=== PATIENT | male | born 1985 | race Caucasian/White ===

== ENCOUNTER 2024-08-05 12:41 | Emergency (ER) | payer MEDICAID, SELFPAY ==
[2024-08-05 13:06] VITALS: BP 148/96; PULSE 78; RESP 18; TEMP 36.8; O2SAT 99; BMI 43.0
--- NOTE | 2024-08-05 13:24 | PD.EDEPIST ---
ED Epistaxis RME/HPI General Chief complaint: Epistaxis/Nasal Foreign Body Stated complaint: EPISTAXIS X 1 WK Time Seen by Provider: 08/05/24 13:25 Source: patient Arrival date/time: 08/05/24 12:41 39-year-old male with no known medical history presents to the emergency room with a chief complaint of left-sided epistaxis x 1 week. Mode of arrival: ambulatory Limitations: no limitations Related Data Home Medications ?Medication ?Instructions ?Recorded ?Confirmed hydrochlorothiazide 12.5 mg capsule 12.5 mg PO QDAY 03/31/18 12/31/18 lisinopril 40 mg tablet 40 mg PO QDAY 03/31/18 12/31/18 fexofenadine 180 mg tablet 180 mg PO QDAY 12/31/18 12/31/18 (Lisa Allergy) metoprolol succinate 25 mg 50 mg PO DAILY 12/31/18 12/31/18 tablet,extended release 24 hr (Toprol XL) ranitidine HCl 150 mg tablet (Acid 150 mg PO QDAY 12/31/18 12/31/18 Funeral Car Driver (ranitidine)) Previous Rx's ?Medication ?Instructions ?Recorded ibuprofen 800 mg tablet 800 mg PO TID PRN pain #30 tabs 12/11/22 hydrocodone 10 mg-acetaminophen 1 tab PO BID PRN pain #5 tabs 12/23/22 325 mg tablet Allergies Allergy/AdvReac Type Severity Reaction Status Date / Time morphine Allergy Mild ITCHINESS Verified 08/05/24 12:44 Review of Systems Review of Systems Systems Reviewed: All systems reviewed, normal except as documented Constitutional Constitutional: Reports system reviewed and no additional complaints, except as documented, Denies fatigue, Denies fever(s), Denies headache(s) and Denies weakness Eyes Eyes: Reports system reviewed and no additional complaints, except as documented, Denies blurry vision and Denies change in vision ENT Ears, Nose, Mouth, and Throat: Reports system reviewed and no additional complaints, except as documented, Denies otalgia, Reports epistaxis, Denies headache(s), Denies nasal congestion, Denies throat swelling and Denies vertigo Cardiovascular Cardiovascular: Reports system reviewed and no additional complaints, except as documented, Denies chest pain, Denies dyspnea and Denies dyspnea on exertion Respiratory Respiratory: Reports system reviewed and no additional complaints, except as documented, Denies chest congestion, Denies cough, Denies dyspnea, Denies dyspnea on exertion and Denies wheezing Gastrointestinal Gastrointestinal: Reports system reviewed and no additional complaints, except as documented, Denies abdominal pain, Denies cramping, Denies nausea and Denies vomiting Genitourinary Genitourinary: Reports system reviewed and no additional complaints, except as documented, Denies dysuria and Denies hematuria Musculoskeletal Musculoskeletal: Reports system reviewed and no additional complaints, except as documented and Denies back pain Integumentary/Breasts Skin/Breast: Reports system reviewed and no additional complaints, except as documented and Denies wounds Neurologic Neurologic: Reports system reviewed and no additional complaints, except as documented, Denies confusion, Denies headache(s), Denies lack of coordination, Denies vertigo and Denies weakness Psychiatric Psychiatric: Reports system reviewed and no additional complaints, except as documented, Denies anxiety, Denies confusion, Denies depression, Denies paranoia, Denies suicidal ideation and Denies tactile hallucinations Endocrine Endocrine: Reports system reviewed and no additional complaints, except as documented and Denies fatigue Hematologic/Lymphatic Hematologic/Lymphatic: Reports system reviewed and no additional complaints, except as documented and Denies lymphadenopathy Allergic/Immunologic Allergic/Immunologic: Reports system reviewed and no additional complaints, except as documented, Denies throat swelling, Denies urticaria and Denies wheezing Past Medical History Past Medical History NEUROLOGIC: Positive Neurological Disorders and Migraine; Negative Seizures CARDIAC: Positive Cardiac Disorders, Hypercholesterolemia and Hypertension; Negative Congestive Heart Failure RESPIRATORY: Positive Asthma and Sleep Apnea; Negative Chronic Obstructive Pulmonary Disease (COPD) GASTROINTESTINAL: Negative Gastrointestinal Disorders GENITOURINARY: Negative Genitourinary Disorders or Renal Disease MUSCULOSKELETAL: Positive Musculoskeletal Disorders and Arthritis ENDOCRINE: Negative Endocrine Disorders, Diabetes Mellitus Type 1 or Diabetes Mellitus Type 2 HEMATOLOGIC: Negative Blood Disorders PSYCHO/SOCIAL: Positive Anxiety; Negative Depression OTHER HISTORY: Positive Chicken Pox; Negative Shingles, Anesthesia Reactions, Measles, Mumps or Cancer Social History SMOKING STATUS: Never smoker ED Exam General Limitations: Present no limitations General appearance: Present alert and in no apparent distress Head Head exam: Present atraumatic Eye Eye exam: Present normal appearance, PERRL and EOMI ENT ENT exam: Present normal exam, normal oropharynx and mucous membranes moist Expanded ENT Exam Nose exam: Absent sinus tenderness, nasal deviation, crepitus or septal hematoma Nasal speculum exam: Left: epistaxis and Right: normal Neck Neck exam: Present normal inspection, full ROM and trachea midline Chest Chest inspection: Present normal inspection and symmetric chest wall rise Respiratory Respiratory exam: Present normal lung sounds bilaterally Cardiovascular Cardiovascular exam: Present regular rate, normal rhythm and normal heart sounds Abdominal Exam Abdominal exam: Present soft and normal bowel sounds Extremities Exam Extremities exam: Present normal inspection and full ROM Back Exam Back exam: Present normal inspection and full ROM Neurological Exam Neurological exam: Present alert, oriented X3 and CN II-XII intact Psychiatric Psychiatric exam: Present normal affect and normal mood Skin Skin exam: Present warm, dry, intact and normal color Course Quality Measures none Vital Signs Vital signs: Vital Signs Temperature 98.3 F 08/05/24 13:06 Pulse Rate 78 08/05/24 13:06 Respiratory Rate 18 08/05/24 13:06 Blood Pressure 148/96 H 08/05/24 13:06 Pulse Oximetry (%) 99 08/05/24 13:06 Oxygen Delivery Method Room Air 08/05/24 13:06 O2 saturation 99% within normal limits Epistaxis MDM Narrative MDM Narrative:: 39-year-old male with no known medical history presents to the emergency room with a chief complaint of left-sided epistaxis x 1 week. Patient is hemodynamically stable and in no apparent distress Physical examination shows a small sore inside of the nose that is the cause of this epistaxis. At this time the patient is no longer bleeding and the bleeding is controlled. Patient was discharged and educated to follow-up with his primary care provider and return to the emergency room for any evidence of worsening signs or symptoms Patient data External records reviewed:: [facility] previous records Clinical information provided by:: patient Social determinants that could affect healthcare access:: none Patient has the following chronic illnesses:: No chronic illness How is presenting disease/condition affected by chronic disease/condition?: no chronic disease Evaluation data The following diagnostics were reviewed and interpreted by me:: lab results and radiology exam(s) Lab and/or radiology exams considered but not ordered:: Labs and radiology exams considered and ordered Interpretation Summary: N/A Medications / Prescriptions Medications or Prescriptions considered but not ordered:: No medication given Medication administrations:: No medication given Consultations Consultation(s) initiated? (list below): No Diagnosis Epistaxis Differential Diagnosis: anterior epistaxis and posterior epistaxis Most likely diagnosis given after review of the tests above:: Anterior epistaxis Admission Indicated Admission indicated?: not indicated Admission Request Was there a request for admission?: No Disposition Plan Disposition Plan: Discharge Discharge Attestation Discharge Attestation: The patient and all family members were given an opportunity to ask questions and understood the discharge instructions. Discharge instructions specifically effects, indications for sooner follow up or return to the emergency department, and the expected course of current diagnosis. Patient condition: Stable Discharge Plan Plan Patient Disposition: HOME (Self Care) Disposition Comment: Stable Prescriptions/Referrals Prescriptions/Med Rec: No Action fexofenadine [Lisa Allergy] 180 mg tablet 180 mg PO QDAY ranitidine HCl [Acid Funeral Car Driver (ranitidine)] 150 mg tablet 150 mg PO QDAY hydrochlorothiazide 12.5 mg Capsule 12.5 mg PO QDAY lisinopril 40 mg Tablet 40 mg PO QDAY metoprolol succinate [Toprol XL] 25 mg tablet extended release 24 hr 50 mg PO DAILY ibuprofen 800 mg tablet 800 mg PO TID PRN (Reason: pain) Qty: 30 0RF hydrocodone-acetaminophen 10-325 mg tablet 1 tab PO BID MDD 2/day PRN (Reason: pain) Qty: 5 0RF Problem List Clinical Impression: Epistaxis Patient/Caregiver Discharge Instructions Education Materials: Nosebleed, ED Epistaxis (Adult) Additional Instructions: Please follow-up with your primary care provider in the next 24 to 48 hours. At this time your bleeding is controlled. For any evidence of worsening signs or symptoms please return to the emergency room immediately Print Language: Vietnamese Stand Alone Forms: Rosalina Award Info., Patient Portal Info Letter EDI/TORY Supervising Physician EDI/TORY Supervising Physician: Dr. Holguin
== END 2024-08-05 13:27 | disposition home or self-care (01) ==
LOC: SERX 13:31
PROVIDERS: Emergency Provider Emergency Medicine; PCP Family Medicine
DX: R04.0 Epistaxis (principal)
CPT/HCPCS: 99281

== ENCOUNTER 2024-10-18 12:50 | Emergency (ER) | payer MEDICAID, SELFPAY ==
[2024-10-18 13:00] VITALS: BP 151/94; PULSE 99; RESP 17; TEMP 36.9; O2SAT 96; BMI 41.0
--- NOTE | 2024-10-18 13:01 | XR_ITS ---
Examination: Abdomen sonogram, Limited Date and time of exam: October 18, 2024 1322 hours INDICATIONS: Right upper abdominal pain radiating to the back beginning 4 days ago Technique: Real-time umana scale transabdominal sonographic images of the upper abdomen obtained. Findings: Normal gallbladder Normal common bile duct 0.4 cm Pancreas obscured by bowel gas Liver 17 cm fatty infiltration Normal hepatopedal portal venous flow Patent IVC IMPRESSION: Normal gallbladder Mild hepatomegaly fatty liver
--- NOTE | 2024-10-18 13:05 | PD.EDABDPN ---
ED Abdominal Pain RME/HPI General Chief Complaint: Abdominal Pain Stated complaint: PAIN ABD RUQ RADIATING TO BACK SINCE LAST Time seen by provider: 10/18/24 12:58 Arrival date/time: 10/18/24 12:50 39-year-old male with no known medical history presents to the emergency room with a chief complaint of 10 out of 10 right upper quadrant abdominal pain and tenderness x 5 days Source: patient Mode of arrival: ambulatory Limitations: no limitations Related Data Home Medications ?Medication ?Instructions ?Recorded ?Confirmed hydrochlorothiazide 12.5 mg capsule 12.5 mg PO QDAY 03/31/18 12/31/18 lisinopril 40 mg tablet 40 mg PO QDAY 03/31/18 12/31/18 fexofenadine 180 mg tablet 180 mg PO QDAY 12/31/18 12/31/18 (Lisa Allergy) metoprolol succinate 25 mg 50 mg PO DAILY 12/31/18 12/31/18 tablet,extended release 24 hr (Toprol XL) ranitidine HCl 150 mg tablet (Acid 150 mg PO QDAY 12/31/18 12/31/18 Kennel Technician (ranitidine)) Previous Rx's ?Medication ?Instructions ?Recorded ibuprofen 800 mg tablet 800 mg PO TID PRN pain #30 tabs 12/11/22 hydrocodone 10 mg-acetaminophen 1 tab PO BID PRN pain #5 tabs 12/23/22 325 mg tablet omeprazole 40 mg capsule,delayed 40 mg PO QDAY #14 caps 10/18/24 release Allergies Allergy/AdvReac Type Severity Reaction Status Date / Time morphine Allergy Mild ITCHINESS Verified 10/18/24 12:53 Review of Systems Review of Systems Systems Reviewed: All systems reviewed, normal except as documented Constitutional Constitutional: Reports system reviewed and no additional complaints, except as documented, Denies fatigue, Denies fever(s), Denies headache(s) and Denies weakness Eyes Eyes: Reports system reviewed and no additional complaints, except as documented, Denies blurry vision and Denies change in vision ENT Ears, Nose, Mouth, and Throat: Reports system reviewed and no additional complaints, except as documented, Denies otalgia, Denies headache(s), Denies nasal congestion, Denies throat swelling and Denies vertigo Cardiovascular Cardiovascular: Reports system reviewed and no additional complaints, except as documented, Denies chest pain, Denies dyspnea and Denies dyspnea on exertion Respiratory Respiratory: Reports system reviewed and no additional complaints, except as documented, Denies chest congestion, Denies cough, Denies dyspnea, Denies dyspnea on exertion and Denies wheezing Gastrointestinal Gastrointestinal: Reports system reviewed and no additional complaints, except as documented, Reports abdominal pain, Reports cramping, Reports nausea and Denies vomiting Genitourinary Genitourinary: Reports system reviewed and no additional complaints, except as documented, Denies dysuria and Denies hematuria Musculoskeletal Musculoskeletal: Reports system reviewed and no additional complaints, except as documented and Denies back pain Integumentary/Breasts Skin/Breast: Reports system reviewed and no additional complaints, except as documented and Denies wounds Neurologic Neurologic: Reports system reviewed and no additional complaints, except as documented, Denies confusion, Denies headache(s), Denies lack of coordination, Denies vertigo and Denies weakness Psychiatric Psychiatric: Reports system reviewed and no additional complaints, except as documented, Denies anxiety, Denies confusion, Denies depression, Denies paranoia, Denies suicidal ideation and Denies tactile hallucinations Endocrine Endocrine: Reports system reviewed and no additional complaints, except as documented and Denies fatigue Hematologic/Lymphatic Hematologic/Lymphatic: Reports system reviewed and no additional complaints, except as documented and Denies lymphadenopathy Allergic/Immunologic Allergic/Immunologic: Reports system reviewed and no additional complaints, except as documented, Denies throat swelling, Denies urticaria and Denies wheezing ED Exam General Limitations: Present no limitations General appearance: Present alert and in no apparent distress Head Head exam: Present atraumatic Eye Eye exam: Present normal appearance, PERRL and EOMI ENT ENT exam: Present normal exam, normal oropharynx and mucous membranes moist Neck Neck exam: Present normal inspection, full ROM and trachea midline Chest Chest inspection: Present normal inspection and symmetric chest wall rise Respiratory Respiratory exam: Present normal lung sounds bilaterally Cardiovascular Cardiovascular exam: Present regular rate, normal rhythm and normal heart sounds Abdominal Exam Abdominal exam: Present soft, tenderness, normal bowel sounds and Jeong's sign Abdominal tenderness: Present RUQ and moderate Extremities Exam Extremities exam: Present normal inspection and full ROM Back Exam Back exam: Present normal inspection and full ROM Neurological Exam Neurological exam: Present alert, oriented X3 and CN II-XII intact Psychiatric Psychiatric exam: Present normal affect and normal mood Skin Skin exam: Present warm, dry, intact and normal color Course Quality Measures none Orders Category Date Time Status CT abdomen pelvis wo con Stat Exams 10/18/24 14:10 Completed US gall bladder Stat Exams 10/18/24 13:01 Completed CBC Stat Lab 10/18/24 13:14 Completed CMP [Comprehensive Metabolic Panel] Stat Lab 10/18/24 13:14 Completed Lipase Stat Lab 10/18/24 13:14 Completed UA [Urinalysis] Stat Lab 10/18/24 13:45 Completed Urine Culture Stat Lab 10/18/24 13:45 Received Ketorolac Inj [Toradol Inj] Med 10/18/24 13:03 Discontinued 30 mg IM X1 ONE Metoclopramide [Reglan] Med 10/18/24 13:01 Discontinued 10 mg PO X1 ONE Vital Signs Vital signs: Vital Signs Temperature 98.5 F 10/18/24 13:00 Pulse Rate 99 10/18/24 13:00 Respiratory Rate 17 10/18/24 13:00 Blood Pressure 151/94 H 10/18/24 13:00 Pulse Oximetry (%) 96 10/18/24 13:00 Oxygen Delivery Method Room Air 10/18/24 13:00 O2 saturation 96% within normal limits Abdominal Pain MDM MDM Narrative MDM Narrative:: 39-year-old male with no known medical history presents to the emergency room with a chief complaint of 10 out of 10 right upper quadrant abdominal pain and tenderness x 5 days Patient is hemodynamically stable and in no apparent distress. Physical examination shows pain and tenderness to the patient's right upper quadrant. Patient was sent by his primary care provider to rule out cholecystitis. Ultrasound of the gallbladder was completed and was negative for any acute findings. The patient was then brought back to the room and reevaluated and the patient still had pain to his abdomen. A CT of the abdomen and pelvis was completed and was also negative for any acute findings. By then during my second reevaluation the patient's pain had significantly decreased. The patient was discharged and educated to follow-up with primary care provider and return to the emergency room for any evidence of worsening signs or symptoms Patient data External records reviewed:: [facility] previous records Clinical information provided by:: patient Social determinants that could affect healthcare access:: none Patient has the following chronic illnesses:: No chronic illness How is presenting disease/condition affected by chronic disease/condition?: no chronic disease Evaluation data The following diagnostics were reviewed and interpreted by me:: lab results and radiology exam(s) Lab and/or radiology exams considered but not ordered:: Labs and radiology exams considered in order Interpretation Summary: Ultrasound gallbladder-Findings: Normal gallbladder Normal common bile duct 0.4 cm Pancreas obscured by bowel gas Liver 17 cm fatty infiltration Normal hepatopedal portal venous flow Patent IVC IMPRESSION: Normal gallbladder Mild hepatomegaly fatty liver Medications / Prescriptions Medications or Prescriptions considered but not ordered:: Medication given Medication administrations:: Medication Administration History Discontinued Medications Ketorolac Tromethamine (Ketorolac Inj 60 Mg/2 Ml Vial) 30 mg IM X1 ONE Stop: 10/18/24 13:04 Last Admin: 10/18/24 13:35 Dose: 30 mg Documented By: OA Metoclopramide HCl (Metoclopramide Liqd 10 Mg/10 Ml Udc) 10 mg PO X1 ONE Stop: 10/18/24 13:02 Last Admin: 10/18/24 13:34 Dose: 10 mg Documented By: OA Medication given Consultations Consultation(s) initiated? (list below): No Diagnosis Differential diagnosis abdominal pain: abdominal pain, gastroenteritis and other (Cholelithiasis/cholecystitis/gastritis) Most likely diagnosis given after review of the tests above:: Gastritis Admission Indicated Admission indicated?: not indicated Admission Request Was there a request for admission?: No Disposition Plan Disposition Plan: Discharge Discharge Attestation Discharge Attestation: The patient and all family members were given an opportunity to ask questions and understood the discharge instructions. Discharge instructions specifically effects, indications for sooner follow up or return to the emergency department, and the expected course of current diagnosis. Patient condition: Stable Discharge Plan Plan Patient Disposition: HOME (Self Care) Discharge Disposition comment: Stable Prescriptions/Referrals Prescriptions/Med Rec: New omeprazole 40 mg capsule,delayed release(DR/EC) 40 mg PO QDAY Qty: 14 0RF No Action fexofenadine [Lisa Allergy] 180 mg tablet 180 mg PO QDAY ranitidine HCl [Acid Kennel Technician (ranitidine)] 150 mg tablet 150 mg PO QDAY hydrochlorothiazide 12.5 mg Capsule 12.5 mg PO QDAY lisinopril 40 mg Tablet 40 mg PO QDAY metoprolol succinate [Toprol XL] 25 mg tablet extended release 24 hr 50 mg PO DAILY ibuprofen 800 mg tablet 800 mg PO TID PRN (Reason: pain) Qty: 30 0RF hydrocodone-acetaminophen 10-325 mg tablet 1 tab PO BID MDD 2/day PRN (Reason: pain) Qty: 5 0RF Problem List Clinical Impression: Gastritis Patient/Caregiver Discharge Instructions Education Materials: ED Gastritis (Adult) Additional Instructions: Please follow-up with your primary care provider in the next 24 to 48 hours. An ultrasound of your gallbladder was completed and was negative for any acute findings. There is no gallstones. CT of the abdomen was completed and was negative for any acute findings. Your blood work was negative for any acute infection or other symptoms. Follow-up with your primary care provider if signs and symptoms continue you might need a referral to a hospital ward clerk for further management. For any evidence of worsening signs or symptoms return to the emergency room immediately Print Language: Guamanian Stand Alone Forms: Rosalina Award Info., Work/School Release, Patient Portal Info Letter PA/BISCUITWARE BRUSHER Supervising Physician EDI/TORY Supervising Physician: Dr. Smith
[2024-10-18] MEDS: METOCLOPRAMIDE LIQD 10 MG/10 ML UDC PO (13:34)
[2024-10-18] MEDS: KETOROLAC INJ 60 MG/2 ML VIAL 30 MG IM (13:35)
[2024-10-18 13:40] LABS: Basophils # (Auto) 0.1 Thou/mm3 (0.0-0.2); Basophils % (Auto) 1 % (0-2.5); Eosinophils # (Auto) 0.3 Thou/mm3 (0.0-0.5); Eosinophils % (Auto) 2 % (0-10); Hematocrit 40.6 % (41.0-53.0); Hemoglobin 14.3 g/dL (13.5-16.0); Immature Granulocytes % (Auto) 0 % (0-0); Immature Granulocytes Auto 0.04 Thou/mm3 (0.00-0.00); Lymphocytes # (Auto) 2.4 Thou/mm3 (1.0-4.8); Lymphocytes % (Auto) 17 % (10-50); Mean Corpuscular HGB Conc 35.2 g/dl (31.0-37.0); Mean Corpuscular Hemoglobin 30.4 pg (25.0-35.0); Mean Corpuscular Volume 86 fL (80-100); Monocytes # (Auto) 1.1 Thou/mm3 (0.0-0.8); Monocytes % (Auto) 7 % (0-12); Neutrophils # (Auto) 10.5 Thou/mm3 (1.8-7.7); Neutrophils % (Auto) 73 % (37-80); Nucleated Red Blood Cell % 0 /100 WBC (0); Platelet Count 319 Thou/mm3 (140-440); RDW Standard Deviation 38.9 fL (35.1-43.9); White Blood Count 14.4 Thou/mm3 (3.8-10.6)
[2024-10-18 13:47] LABS: Alanine Aminotransferase 25 U/L (10-49); Albumin, Serum 4.9 gm/dL (3.5-5.0); Albumin/Globulin Ratio 1.7 (1.2-2.2); Alkaline Phosphatase 133 U/L (46-116); Anion Gap 9 (7-16); Aspartate Amino Transferase 15 U/L (0-34); BUN/Creatinine Ratio 11 Ratio (12-20); Bilirubin,Total 0.4 mg/dL (0.3-1.2); Blood Urea Nitrogen 12 mg/dL (9-23); Calcium 10.2 mg/dL (8.3-10.6); Calcium (Corrected) 10.2 mg/dL (8.5-10.1); Chloride 103 mMol/L (98-107); Creatinine (Component) 1.1 mg/dL (0.6-1.3); Globulin 2.9 gm/dL (2.3-3.5); Glucose 103 mg/dL (74-106); Lipase 32 U/L (12-53); Osmolality,Calculated 277 (275-295); Potassium 4.2 mMol/L (3.4-5.1); Sodium 139 mMol/L (136-145); Total Protein 7.8 gm/dL (5.7-8.2); eGFR > 60 See Note
[2024-10-18 13:55] LABS: Collection Type, Urine Clean Catch
--- NOTE | 2024-10-18 14:10 | XR_ITS ---
Examination: CT abdomen and pelvis without contrast. Coronal 3-D reconstructions. Sagittal 2-D reconstructions. Date and time of exam:October 18, 2024 1545 hours Comparison December 11, 2022 INDICATIONS: Right-sided flank pain and nausea today CTDI: vol (mGy): 14 DLP: (mGycm): 909 Technique: Axial images of the abdomen have been obtained, 3 mm slice thickness Intravenous contrast material has not been administered. Low dose protocols were performed. One or more of the following dose reduction techniques were used; automated exposure control, adjustment of the mA and/or KV according to patient size, use of iterative reconstruction technique. Findings: Pneumonia left base No liver or splenic lesion No gallstones No pancreatic or adrenal mass No renal or ureteral calculi, no hydronephrosis Aorta normal size 4 mm fat-containing umbilical hernia Normal appendix No bowel obstruction or diverticulitis Contracted urinary bladder. No prostatomegaly Osseous structures are intact IMPRESSION: No renal or ureteral calculi, no hydronephrosis Normal appendix Tiny fat-containing a buckle hernia No bowel obstruction or diverticulitis
[2024-10-18 14:45] LABS: Bilirubin,Urine Negative (Negative); Blood,Urine Negative (Negative); Clarity,Urine Clear (Clear/Hazy); Color,Urine Yellow (Lt Yel-Yel); Glucose, Urine Negative (Negative); Ketones,Urine Negative (Negative); Leukocyte Esterase,Urine Negative (Negative); Nitrite,Urine Negative (Negative); Protein,Urine Negative (Neg - Trace); RBC,Urine 1 /hpf (0-3); Squamous Epithelial Cell,Urine < 1 /hpf (0-5); Urobilinogen,Urine Negative mg/dL (0.0-1.0); WBC,Urine 1 /hpf (0-5)
[2024-10-18 18:05] VITALS: BP 124/82; PULSE 78
== END 2024-10-18 18:06 | disposition home or self-care (01) ==
PROVIDERS: Nurse Practitioner Family; Emergency Provider Family Medicine; PCP Family Medicine
DX: K29.70 Gastritis, unspecified, without bleeding (principal); K76.0 Fatty (change of) liver, not elsewhere classified
CPT/HCPCS: 36415; 74176; 76705; 80053; 81001; 83690; 85025; 87086; 96372; 99284; J1885; A9270